=== PATIENT | male | born 1995 | race Caucasian/White ===

== ENCOUNTER 2018-09-28 20:23 | Emergency (ER) | payer OTHER ==
[~2018-09-28] VITALS: Ht 175.3 cm; Wt 59.9 kg
[2018-09-28] MEDS ORDERED: CYCL10 PO (21:20)
[2018-09-28] MEDS ORDERED: HYDR1TAB94 PO (21:20)
[2018-10-29] MEDS ORDERED: Naproxen500 MG PO (17:56)
[2018-10-29] MEDS ORDERED: CYCL10 PO ×2 (17:57→19:07)
[2018-10-29] MEDS ORDERED: Naprosyn500 MG PO (19:08)
== END 2018-09-28 21:31 | disposition home or self-care (01) ==
LOC: ER 20:23
DX: S29.012A Strain of muscle and tendon of back wall of thorax, initial encounter (principal); X50.0XXA Overexertion from strenuous movement or load, initial encounter
CPT/HCPCS: 72070; 96372; 99283-25; A9270; J1885

== ENCOUNTER → 2018-11-16 | Outpatient (CLI) | payer OTHER ==
[~2018-11-16] MED LIST: CYCL10 PO; HYDR1TAB94 PO; Naprosyn500 MG PO; Naproxen500 MG PO; Norco 5-325 Ta1 EACH PO
== END | disposition home or self-care (01) ==
LOC: LAB SHORT 17:36 → LAB EV 17:36
DX: J02.9 Acute pharyngitis, unspecified (principal)
CPT/HCPCS: 87081

== ENCOUNTER 2018-12-01 10:37 | Emergency (ER) | payer OTHER ==
[~2018-12-01] VITALS: Ht 175.3 cm; Wt 59.0 kg
[~2018-12-01 10:37] MED LIST changes: -Norco 5-325 Ta1 EACH PO
[2018-12-01] MEDS ORDERED: Norco 5-325 Ta1 EACH PO (11:36)
== END 2018-12-01 12:02 | disposition home or self-care (01) ==
LOC: ER 10:37
DX: M54.5 Low back pain (principal); G89.29 Other chronic pain; K21.9 Gastro-esophageal reflux disease without esophagitis; F17.200 Nicotine dependence, unspecified, uncomplicated; Z79.899 Other long term (current) drug therapy
CPT/HCPCS: 96372; 99283-25; A9270-GY; J1885

== ENCOUNTER 2018-12-13 20:32 | Emergency (ER) | payer OTHER ==
[~2018-12-13] VITALS: Ht 175.3 cm; Wt 59.0 kg
[~2018-12-13 20:32] MED LIST changes: +Norco 5-325 Ta1 EACH PO
[2018-12-13] MEDS ORDERED: MELO7.5 (21:10)
[2018-12-13] MEDS ORDERED: Baclofen20 MG (21:10)
[2018-12-13] MEDS ORDERED: Robaxin-750750 MG PO (21:18)
[2018-12-13] MEDS ORDERED: DICL75ER PO (21:18)
== END 2018-12-13 21:22 | disposition home or self-care (01) ==
LOC: ER 20:32
DX: M62.830 Muscle spasm of back (principal); Z88.8 Allergy status to other drugs, medicaments and biological substances; Z79.899 Other long term (current) drug therapy; F17.200 Nicotine dependence, unspecified, uncomplicated
CPT/HCPCS: 72070; 96372; 99283-25; J1885

== ENCOUNTER 2018-12-25 16:35 | Emergency (ER) | payer OTHER ==
[~2018-12-25] VITALS: Ht 175.3 cm; Wt 59.0 kg
[~2018-12-25 16:35] MED LIST changes: +Baclofen20 MG; +DICL75ER PO; +MELO7.5; +Robaxin-750750 MG PO
[2018-12-25] MEDS ORDERED: Robaxin-750750 MG PO (18:36)
[2018-12-25] MEDS ORDERED: Mobic15 MG PO (18:36)
== END 2018-12-25 19:08 | disposition home or self-care (01) ==
LOC: ER 16:35
DX: M51.86 Other intervertebral disc disorders, lumbar region (principal); F17.200 Nicotine dependence, unspecified, uncomplicated; Z88.8 Allergy status to other drugs, medicaments and biological substances
CPT/HCPCS: 96372; 99283-25; J1100; J1885

== ENCOUNTER 2019-09-09 06:30 | Emergency (ER) | payer OTHER ==
[~2019-09-09] VITALS: Ht 177.8 cm; Wt 59.0 kg
[~2019-09-09 06:30] MED LIST changes: +Mobic15 MG PO
[2019-09-09] MEDS ORDERED: CYCL10 PO (07:28)
[2019-09-09] MEDS ORDERED: NAPR500 PO (07:28)
[2019-09-09] MEDS ORDERED: PRED20 PO (07:28)
== END 2019-09-09 08:13 | disposition home or self-care (01) ==
LOC: ER 06:30
DX: S29.012A Strain of muscle and tendon of back wall of thorax, initial encounter (principal); K21.9 Gastro-esophageal reflux disease without esophagitis; Z88.8 Allergy status to other drugs, medicaments and biological substances; Z79.899 Other long term (current) drug therapy; F17.200 Nicotine dependence, unspecified, uncomplicated; X50.9XXA Other and unspecified overexertion or strenuous movements or postures, initial encounter
CPT/HCPCS: 96372; 99283-25; J1100; J1885

== ENCOUNTER → 2020-04-03 | Outpatient (CLI) | payer OTHER ==
[~2020-04-03] MED LIST changes: +NAPR500 PO; +PRED20 PO
== END | disposition home or self-care (01) ==
LOC: LAB SHORT 15:35 → LAB SRC 15:35
DX: R31.9 Hematuria, unspecified (principal)
CPT/HCPCS: 88108

== ENCOUNTER → 2020-10-24 | Outpatient (CLI) | payer OTHER | END | disposition home or self-care (01) | LOC: LAB SHORT 13:42 → LAB 13:42 | DX: N39.0 Urinary tract infection, site not specified (principal) | CPT/HCPCS: 87086 ==

== ENCOUNTER → 2021-03-12 | Outpatient (CLI) | payer OTHER ==
[2021-03-12 18:33] LABS: Source, Urine Clean Catch
[2021-03-12 18:47] LABS: Bacteria Few /hpf; Red Blood Cells, Urine TNTC /hpf (0-2); Squamous Epithelial Cells Not Seen /hpf (Few); White Blood Cells, Urine Rare /hpf (0-5)
== END | disposition home or self-care (01) ==
LOC: LAB SHORT 18:31 → LAB 18:31
PROVIDERS: Physician Assistant
DX: R31.9 Hematuria, unspecified (principal)
CPT/HCPCS: 81015; 87086

== ENCOUNTER 2023-11-21 09:28 | Emergency (ER) | payer OTHER ==
[~2023-11-21] VITALS: Ht 177.8 cm; Wt 57.1 kg
[2023-11-21 10:01] VITALS: BP 128/88
[2023-11-21] MEDS ORDERED: BENZ100A PO (10:44)
== END 2023-11-21 10:46 | disposition home or self-care (01) ==
LOC: ER 09:28
DX: J06.9 Acute upper respiratory infection, unspecified (principal); F17.200 Nicotine dependence, unspecified, uncomplicated; K21.9 Gastro-esophageal reflux disease without esophagitis; Z79.899 Other long term (current) drug therapy; Z88.8 Allergy status to other drugs, medicaments and biological substances
CPT/HCPCS: 99283